=== PATIENT | female | born 1960 | race Caucasian/White ===

== ENCOUNTER → 2019-01-15 | Outpatient (CLI) | payer OTHER ==
[~2019-01-15] MED LIST: ASPI-515 PO; HYDR12.517 PO; LEVO100T5 PO; LISI-167 PO; fluticasone INH
== END | disposition home or self-care (01) ==
LOC: CFH 07:13
PROVIDERS: ATTEND Family Medicine
DX: R92.2 Inconclusive mammogram (principal)
CPT/HCPCS: 76377; 76642